=== PATIENT | male | born 1995 | race Caucasian/White ===

== ENCOUNTER 2019-11-22 22:27 | Emergency (ER) | payer MEDICAID ==
[~2019-11-22] VITALS: Ht 177.8 cm; Wt 79.1 kg
[2019-11-22 22:27] VITALS: BP 111/68; TEMP 98.3
[~2019-11-22 22:27] MED LIST: NO HOME MEDICATIONS
[2019-11-22] MEDS ORDERED: NORCO 325 MG-51 TAB PO (23:22)
[2019-11-22] MEDS ORDERED: CRUTCHES MC (23:24)
[2019-11-23 00:45] VITALS: PULSE 98
== END 2019-11-23 00:45 | disposition home or self-care (01) ==
LOC: COL.ER 22:27
DX: S82.831A Other fracture of upper and lower end of right fibula, initial encounter for closed fracture (principal); Y04.8XXA Assault by other bodily force, initial encounter; W19.XXXA Unspecified fall, initial encounter; X50.1XXA Overexertion from prolonged static or awkward postures, initial encounter; Y92.009 Unspecified place in unspecified non-institutional (private) residence as the place of occurrence of the external cause

== ENCOUNTER 2020-02-20 15:34 | Emergency (ER) | payer MEDICAID ==
[~2020-02-20] VITALS: Ht 177.8 cm; Wt 79.5 kg
[~2020-02-20 15:34] MED LIST changes: +CRUTCHES MC; +NORCO 325 MG-51 TAB PO
[2020-02-20 15:43] VITALS: BP 154/75; TEMP 98.9
[2020-02-20 18:06] VITALS: PULSE 87
== END 2020-02-20 18:06 | disposition home or self-care (01) ==
LOC: COL.ER 15:34
DX: S62.302A Unspecified fracture of third metacarpal bone, right hand, initial encounter for closed fracture (principal); V00.131A Fall from skateboard, initial encounter; Y92.830 Public park as the place of occurrence of the external cause
CPT/HCPCS: Q4021

== ENCOUNTER 2024-05-06 14:12 | Emergency (ER) | payer OTHER ==
[~2024-05-06] VITALS: Ht 177.8 cm; Wt 90.0 kg
[~2024-05-06 14:12] MED LIST changes: +FOLIC ACID 11 MG/TA1 PO; +MULTI VITAMINS1 TAB PO; +NATURE'S BLEND100 M2 PO
[2024-05-06 14:14] VITALS: TEMP 99.7
[2024-05-06] MEDS ORDERED: LORazepam 2 MG/ML 1 ML VIAL IV ONE (14:30)
[2024-05-06] MEDS ORDERED: NS 1,000 ML IV ONE (14:30)
[2024-05-06 14:59] LABS: BASO # 0.1 K/mm3 (0.0-0.2); BASO % 1.3 % (0.0-2.0); EOS # 0.1 K/mm3 (0.0-0.7); EOS % 1.1 % (0.0-4.0); GRAN % 56.9 % (42.2-75.2); HEMATOCRIT 49.1 % (42.0-52.0); HEMOGLOBIN 16.8 g/dl (13.5-18.0); LYMPH # 1.4 K/mm3 (1.2-3.4); MEAN CELL VOLUME 88 fl (80.0-100.0); MEAN CORPUSCULAR HEMOGLOBIN 30 pg (27-31); MEAN CORPUSCULAR HGB CONC 34 g/dl (33.0-37.0); MEAN PLATELET VOLUME 8.2 fl (7.4-10.4); MONO # 0.8 K/mm3 (0.1-0.6); MONO % 14.5 % (1.7-9.3); PLATELET COUNT 151 K/mm3 (130-400); RED BLOOD COUNT 5.61 M/mm3 (4.20-5.60)
[2024-05-06 15:21] LABS: ALANINE AMINOTRANSFERASE 140 U/L (0-55); ALBUMIN 4.3 g/dL (3.5-5.0); ALCOHOL(ethanol),MEDICAL 177 mg/dL (0-10); ALKALINE PHOSPHATASE 70 U/L (40-150); ANION GAP 19 mmol/L (7-16); AST,SGOT 147 U/L (5-34); BILIRUBIN,TOTAL 0.9 mg/dL (0.2-1.2); BLOOD UREA NITROGEN 9 mg/dL (9-21); CALCIUM 9.4 mg/dL (8.4-10.2); CHLORIDE 102 mEq/L (98-107); CREATINE KINASE 237 U/L (30-200); CREATININE, serum 0.83 mg/dL (0.72-1.25); GLUCOSE 94 mg/dL (70-99); POTASSIUM 3.5 mEq/L (3.5-4.5); SODIUM 141 mEq/L (136-145); TOTAL PROTEIN 7.8 g/dl (6.2-8.1)
[2024-05-06 15:24] LABS: SALICYLATE < 5.0 mg/dL (15.0-30.0)
[2024-05-06 15:31] LABS: COLLECTION METHOD CLEAN CATCH
[2024-05-06 15:41] LABS: URINE APPEARANCE CLEAR (CLEAR/HAZY); URINE BLOOD NEGATIVE (NEGATIVE); URINE COLOR YELLOW (YELLOW); URINE GLUCOSE NEGATIVE (NEGATIVE); URINE KETONE 2+ (NEGATIVE); URINE NITRATE NEGATIVE (NEGATIVE); URINE PROTEIN(semi-quant) 2+ (NEGATIVE)
[2024-05-06 16:03] LABS: TRICYCLIC ANTIDEPRESS URINE NEGATIVE (NEGATIVE)
[2024-05-06] MEDS ORDERED: VISTARIL 2525 MG/CAP PO (16:03)
[2024-05-06 16:30] VITALS: BP 151/107; PULSE 107
--- NOTE | 2024-05-06 16:41 | NUR ---
leadite worker received a consult for this patient for detox resources. SW spoke with patient's nurse, Sheeba, whom reported patient is detoxing from alcohol. Sheeba reported patient has PTSD and has been self medicating until he is able to see his PCP in June and wanted resources in the community for detox options. ERICK met with patient and his friend to complete assessment. Patient lives in [place] by himself. PCP is not established yet but will be seeing a provider at [facility] in [place] in June. Pharmacy is [facility]. Insurance is the [place]. No DPOA-HC but understands his next of kin would be his parents and he is okay with this. No DME and reports to be independent with ADLS. Patient reports to have a vehicle for transportation to and from appointments but needs to get his tags updated. ERICK discussed AA meetings, detox options for inpatient, outpatient and counseling and mental health providers in the area. SW provided all of this information in printed forms for patient to review when he discharges. Patient understood and did not have any concerns returning home at time of discharge. No new DME or services/supports to be implemented at time of discharge.
== END 2024-05-06 16:30 | disposition home or self-care (01) ==
LOC: COL.ER 14:12
PROVIDERS: Emergency Medicine
DX: F41.9 Anxiety disorder, unspecified (principal); F10.129 Alcohol abuse with intoxication, unspecified; R74.01 Elevation of levels of liver transaminase levels; Y90.6 Blood alcohol level of 120-199 mg/100 ml
CPT/HCPCS: J2060; J7030